=== PATIENT | female | born 1950 | race Caucasian/White ===

== ENCOUNTER 2016-06-23 07:04 | Emergency (ER) | payer MEDICARE, MEDICAID ==
[~2016-06-23] VITALS: Wt 67.0 kg
[~2016-06-23 07:04] MED LIST: DOCU-144 PO; HYDR-3498 PO; ONDA4TAB35 PO
[2016-06-23] MEDS ORDERED: DOCU-144 PO (07:42)
[2016-06-23] MEDS ORDERED: IBUP-1542 PO (07:42)
[2016-06-23] MEDS ORDERED: HYDR25SU23 PR (07:42)
[2016-06-23] MEDS ORDERED: ACET500C5 PO (07:43)
--- NOTE | 2016-06-23 07:47 | ERD ---
ER Documentation Chief Complaint Date/Time DATE: 06/23/16 TIME: 07:44 Chief Complaint HEMMROID PAIN HPI This is a 66-year-old female who presents the emergency department today complaining of rectal pain that is intermittent for the past 3 months. Patient states that one week ago she had a physical and had laboratory work and a urine done and was told everything was normal. She did tell her physician about her rectal pain and states that she was told that she "might have colon cancer". Denies any blood in her stool, constipation, fevers or chills ROS All systems reviewed and are negative except as per history of present illness. Medications Home Meds Active Scripts Acetaminophen* (Tylophen*) 500 Mg Capsule, 1 CAP PO Q6H Y for PAIN AND OR ELEVATED TEMP, #30 CAP Prov:LUTHER RUIZ PA-C 06/23/16 Ibuprofen* (Motrin*) 600 Mg Tab, 600 MG PO Q6, #30 TAB Prov:LUTHER RUIZ PA-C 06/23/16 Docusate Sodium* (Colace*) 100 Mg Capsule, 100 MG PO TID, #30 CAP Prov:LUTHER RUIZ PA-C 06/23/16 Hydrocortisone Acetate (Anusol-Hc) 25 Mg Supp.rect, 1 SUPP NV BID, #15 SUPP.RECT Prov:LUTHER RUIZ PA-C 06/23/16 Docusate Sodium* (Colace*) 100 Mg Capsule, 100 MG PO TID, #30 Prov:SULY LIM MD 01/07/15 Ondansetron Hcl* (Zofran* ODT) 4 mg -ODT Tab.disper, 4 MG PO Q6 Y for NAUSEA AND /OR VOMITING, #30 TAB Prov:SULY LIM MD 01/07/15 Hydrocodone Bit-Acetaminophen* (Parsons*) 5-325 Mg Tab, 1 TAB PO Q6 Y for PAIN, # 7 TAB Prov:SULY LIM MD 01/07/15 Allergies Allergies: Coded Allergies: No Known Allergy (Unverified , 06/23/16) PMhx/Soc Medical and Surgical Hx: pt denies Surgical Hx History of Surgery: No Anesthesia Reaction: No Hx Neurological Disorder: No Hx Respiratory Disorders: No Hx Cardiac Disorders: No Hx Psychiatric Problems: No Hx Miscellaneous Medical Probl: Yes (shingles ) Hx Alcohol Use: No Hx Substance Use: No Hx Tobacco Use: No Smoking Status: Never smoker Physical Exam Vitals Vital Signs Date Time Temp Pulse Resp B/P Pulse Ox O2 Delivery O2 Flow Rate FiO2 06/23/16 07:12 98.0 75 18 147/69 99 Physical Exam Const: No acute distress Head: Atraumatic Eyes: Normal Conjunctiva ENT: Normal External Ears, Nose and Mouth. Neck: Full range of motion..~ No meningismus. Resp: Clear to auscultation bilaterally Cardio: Regular rate and rhythm, no murmurs Abd: Soft, non tender, non distended. Normal bowel sounds Skin: No petechiae or rashes Rectal evidence of external hemorrhoids. No evidence of thrombosed hemorrhoids, drainage, erythema or warmth Neur: Awake and alert Psych: Normal Mood and Affect Procedures/MDM This is a 65-year-old female who presents to the emergency department today complaining of rectal pain that is intermittent for the past 3 months. On physical exam patient has external hemorrhoids. Patient was asking about doing a test to see if she had colon cancer. I have explained to the patient that she needs to follow back up with her primary care physician and they may refer her for a colonoscopy. Patient understood. Patient is afebrile and otherwise well-appearing here in the emergency department. She declined pain medication here stating that when she takes 2 ibuprofen at home her pain improves. Low suspicion for thrombosed hemorrhoids, rectal abscess, perirectal abscess. I do not feel the patient requires an incision and drainage at this time. Patient was given a prescription for Anusol, Colace, Tylenol and Motrin At this time the patient is stable for discharge and outpatient management. Patient should follow up with their PCP in the next 1-2 days. They may return to the emergency department sooner for any persistent or worsening of symptoms. Patient understood and agreed with the plan. Departure Diagnosis: Primary Impression: Rectal pain Condition: Fair Patient Instructions: Treating Hemorrhoids: Self-Care, Hemorrhoids Additional Instructions: Llame al doctor MAANA y efrain bhavana SEAN PARA DENTRO DE 1-2 HDEZ.Dgale a la secretaria que nosotros le instruimos hacer esta sean.Avise o llame si herrera condicin se empeora antes de la sean. Regresa aqui si peor o no mejor. Make an appointment with your primary care doctor for a colonoscopy Take Tylenol or Motrin for pain Take Colace for stool softener Use Anusol for hemorrhoids LUTHRE RUIZ PA-C Jun 23, 2016 07:47
== END 2016-06-23 07:55 | disposition home or self-care (01) ==
LOC: FTE 07:04
DX: K62.89 Other specified diseases of anus and rectum (principal)
CPT/HCPCS: 99283